=== PATIENT | female | born 1995 | race Caucasian/White ===

== ENCOUNTER 2019-10-16 08:35 | Emergency (ER) | payer OTHER ==
--- NOTE | 2019-10-16 09:23 | ER Document Report ---
ED ENT - General Chief Complaint: Sore Throat Stated Complaint: SORE THROAT Time Seen by Provider: 10/16/19 09:08 Notes: CHIEF COMPLAINT: Sore throat for a month HPI: 24-year-old female presenting for sore throat and painful swallowing for a month. No definitive fevers. Patient states that she did telehealth with [facility] and was initially placed on doxycycline which did not resolve symptoms was then treated with a Z-Mehdi 2 weeks ago which did not resolve her symptoms. Denies cough chest pain shortness of breath abdominal pain nausea vomiting or rash ROS: See HPI - all other systems were reviewed and are otherwise negative Constitutional: no fever Eyes: no drainage, no blurred vision ENT: no runny nose, + sore throat Cardiovascular: no chest pain Resp: no SOB, no cough GI: no vomiting, no diarrhea, no abdominal pain : no dysuria Integumentary: no rash Allergy: no hives Musculoskeletal: no extremity pain or swelling Neurological: no numbness/tingling, no weakness MEDICATIONS: I agree with the patient medications as charted by the RN. ALLERGIES: I agree with the allergies as charted by the RN. PAST MEDICAL HISTORY/PAST SURGICAL HISTORY: Reviewed and agree as charted by RN. SOCIAL HISTORY: Reviewed and agree as charted by RN. FAMILY HISTORY: No significant familial comorbid conditions directly related to patient complaint EXAM: Reviewed vital signs as charted by RN. CONSTITUTIONAL: Alert and oriented and responds appropriately to questions. Well-appearing; well-nourished HEAD: Normocephalic; atraumatic EYES: PERRL; Conjunctivae clear, sclerae non-icteric ENT: normal nose; no rhinorrhea; moist mucous membranes; posterior pharynx shows erythema with exudate. Bilateral tonsillar hypertrophy is noted with exudate, no soft palate swelling, uvula is midline, phonation normal NECK: Supple without meningismus; non-tender; positive anterior cervical lymphadenopathy, no masses CARD: RRR; no murmurs, no clicks, no rubs, no gallops; symmetric distal pulses RESP: Normal chest excursion without splinting or tachypnea; breath sounds clear and equal bilaterally; no wheezes, no rhonchi, no rales, pulse oximetry 98% on room air not hypoxic ABD/GI: Normal bowel sounds; non-distended; soft, non-tender, no rebound, no guarding; no palpable organomegaly or masses. No hepatomegaly or splenomegaly BACK: The back appears normal and is non-tender to palpation, there is no CVA tenderness EXT: Normal ROM in all joints; no cyanosis, no effusions, no edema SKIN: Normal color for age and race; warm; dry; good turgor; no acute lesions noted NEURO: Moves all extremities equally; Motor and sensory function intact PSYCH: The patient's mood and manner are appropriate. Grooming and personal hygiene are appropriate. MDM: 24-year-old female with sore throat for a month, treated with doxycycline and azithromycin without improvement in symptoms, she has penicillin allergy. Will check rapid strep today but will also check Monospot Past Medical History - Social History Smoking Status: Unknown if Ever Smoked Family History: Reviewed & Not Pertinent Physical Exam - Vital signs Vitals: Temp Pulse Resp BP Pulse Ox 98.9 F 106 H 16 133/68 H 96 10/16/19 08:42 10/16/19 08:42 10/16/19 08:42 10/16/19 08:42 10/16/19 08:42 Course - Re-evaluation Re-evalutation: 10/16/19 10:54 Rapid strep and Monospot are both negative this is likely a viral etiology will give patient Decadron here in the emergency department for the sore throat complaint, will obtain COVID this is a test macro. - Vital Signs Vital signs: Temp Pulse Resp BP Pulse Ox 98.9 F 106 H 16 133/68 H 96 10/16/19 08:42 10/16/19 08:42 10/16/19 08:42 10/16/19 08:42 10/16/19 08:42 Discharge - Discharge Clinical Impression: Viral pharyngitis, Person under investigation for COVID-19 Condition: Stable Disposition: HOME, SELF-CARE Additional Instructions: Your strep test and mono test are negative. This may be a viral etiology. The Decadron should improve your throat discomfort. A COVID test is being performed today will be considered a person under investigation until you have a negative test. Self quarantine at home Referrals: IVANA HUNT MD [ACTIVE STAFF] - Follow up as needed
[2019-10-16] MEDS ORDERED: DEXAMETHASONE 4 MG TABLET PO ONE (10:54)
[2019-10-16 11:44] VITALS: BP 130/70
== END 2019-10-16 11:42 | disposition home or self-care (01) ==
LOC: ER 08:35
DX: J02.8 Acute pharyngitis due to other specified organisms (principal); B97.89 Other viral agents as the cause of diseases classified elsewhere; J35.1 Hypertrophy of tonsils; Z20.828 Contact with and (suspected) exposure to other viral communicable diseases
CPT/HCPCS: 99283; 36415; 87070; 87880; 87635; 86308; J8540; C9803